=== PATIENT | female | born 1975 | race Hispanic/Latino ===

== ENCOUNTER 2018-05-16 08:08 | Emergency (ER) | payer OTHER ==
[2018-05-16 08:15] VITALS: BP 156/106
[2018-05-16] MEDS ORDERED: XYLOCAINE 1% 20 mL INFILTRATI ONE (08:35)
[2018-05-16] MEDS ORDERED: BOOSTRIX IM ONE (09:30)
--- NOTE | 2018-05-16 09:30 | Emergency Department Report ---
Abscess Boil HPI - HPI Chief Complaint: Skin/Abscess/Foreign Body Stated Complaint: Earring infection Time Seen by Provider: 05/16/18 08:36 Duration: 2 Days Location: Other (left ear) Severity: Moderate History: Yes Pain, Yes Foreign Body, No Fever, No Purulent Drainage, No Numbness, No Previous History, No Insect Bite HPI: Patient is a 42-year-old female who comes to the ER today after getting a new tragus ear piercing. The ear began to swell and she had a friend attempted to remove the earring. However, they could not get the earring out. The earring subsequently has retracted into the swollen tragus of the left ear. Home Medications: Previous Rx's Medication Instructions Recorded Last Taken Type Amoxicillin 500 mg PO BID #20 capsule 05/16/18 Unknown Rx traMADol [Ultram] 50 mg PO Q6HR PRN #10 tablet 05/16/18 Unknown Rx Allergies/Adverse Reactions: Allergies Allergy/AdvReac Type Severity Reaction Status Date / Time No Known Allergies Allergy Verified 05/16/18 09:34 ED Review of Systems ROS: Stated complaint: Earring infection Other details as noted in HPI Comment: All other systems reviewed and negative Constitutional: denies: chills Eyes: denies: eye pain ENT: denies: throat pain Respiratory: denies: orthopnea Cardiovascular: denies: dyspnea on exertion Endocrine: denies: flushing Gastrointestinal: denies: nausea Genitourinary: denies: urgency Musculoskeletal: as per HPI Skin: as per HPI, lesions. denies: rash Psychiatric: denies: depression Hematological/Lymphatic: denies: easy bleeding ED Past Medical Hx - Past Medical History Previous Medical History?: No - Surgical History Past Surgical History?: No - Social History Smoking Status: Never Smoker Substance Use Type: None - Medications Home Medications: Home Medications Medication Instructions Recorded Confirmed Last Taken Type Amoxicillin 500 mg PO BID #20 capsule 05/16/18 Unknown Rx traMADol [Ultram] 50 mg PO Q6HR PRN #10 tablet 05/16/18 Unknown Rx ED Abscess Boil Physical Exam - Exam General: Vital signs noted. No distress. Alert and acting appropriately. Exam: Yes Tenderness, Yes Surrounding Cellulites/Erythema, Yes Normal Neurologic Exam, Yes Normal Circulation, No Fluctuance, No Lymphangitis, No Crepitation, No Heart Murmur ED Course Vital Signs 05/16/18 08:12 Temperature 98.7 F Pulse Rate 91 H Respiratory 16 Rate Blood Pressure 156/106 O2 Sat by Pulse 100 Oximetry Critical care attestation.: If time is entered above; I have spent that time in minutes in the direct care of this critically ill patient, excluding procedure time. ED Medical Decision Making - Medical Decision Making pt was medicated for pain and with some difficulty I was able to pull the ear ring through the back of the tragus. The front ball was visible with manipulation of skin but the ball was mis thread and could not be unthread. pt dc with antibiotics and instructed not to repierce that ear. - Differential Diagnosis mobile foreign body ED Disposition Clinical Impression: Foreign body (FB) in soft tissue Disposition: DC-01 TO HOME OR SELFCARE Is pt being admited?: No Does the pt Need Aspirin: No Condition: Stable Instructions: Soft Tissue Foreign Body (ED) Additional Instructions: ice meds as ordered no more piercing in this body part- scar tissue will form and the same will happen motrin or tylenol for mild pain Prescriptions: Amoxicillin 500 mg PO BID #20 capsule traMADol [Ultram] 50 mg PO Q6HR PRN #10 tablet PRN Reason: Pain Referrals: PRIMARY CARE, [Primary Care Provider] - 3-5 Days Forms: Work/School Release Form(ED) Time of Disposition: 10:16 - Foreign Body Removal Ear Location: ear canal (L) Foreign Body Suspected: other (ear ring in tragus) Foreign Body Removed: yes Foreign Body Removal Technique: instrumentation Tympanic Membrane Intact: Yes Patient Tolerated Procedure: well Complications: pain
[2018-05-16] MEDS ORDERED: NORCO 5/325 PO ONE (10:00)
[2018-05-16] MEDS ORDERED: DECADRON IV ONE (10:07)
[2018-05-16] MEDS ORDERED: DILAUDID IM ONE (10:07)
[2018-05-16] MEDS ORDERED: DECADRON IM ONE (10:31)
== END 2018-05-16 11:20 | disposition home or self-care (01) ==
LOC: ED 08:08
DX: T16.2XXA Foreign body in left ear, initial encounter (principal); W45.8XXA Other foreign body or object entering through skin, initial encounter; Y93.89 Activity, other specified; Y92.89 Other specified places as the place of occurrence of the external cause; Y99.8 Other external cause status
CPT/HCPCS: 90471; 90715; 96372; 99283; J1100; J1170

== ENCOUNTER 2018-09-12 10:21 | Emergency (ER) | payer OTHER ==
[2018-09-12 10:36] VITALS: BP 163/108
--- NOTE | 2018-09-12 12:46 | XRay Report ---
Left foot 3 views: History: Stepped on glass. Findings: No radiopaque foreign body in soft tissue. No fracture, periosteal reaction or lytic lesion. Impression: Essentially negative right foot
--- NOTE | 2018-09-12 12:56 | Emergency Department Report ---
ED Extremity Problem HPI - General Chief complaint: Wound/Laceration Stated complaint: LFT FT/TOE CUT/PAIN Time Seen by Provider: 09/12/18 11:39 Source: patient Mode of arrival: Ambulatory Limitations: No Limitations - History of Present Illness Initial comments: Patient is a 42-year-old female who was trying to fix her running toilet Only dropped a candle that was sitting on the commode top onto the floor. Patient actually stepped on the glass. Patient is a laceration to the bottom of the left foot as well as a cut into the fourth toe this occurred 2 days ago. Patient states bleeding. She is still having some pain. Patient is here for evaluation of possible stitches. Patient states the pain is aching and throbbing worse when she walks and better when she rests and is 6 out of 10 in severity. - Related Data Previous Rx's Medication Instructions Recorded Last Taken Type Amoxicillin 500 mg PO BID #20 capsule 05/16/18 Unknown Rx traMADol [Ultram] 50 mg PO Q6HR PRN #10 tablet 05/16/18 Unknown Rx Ibuprofen [Ibu] 600 mg PO Q6HR PRN #20 tablet 09/12/18 Unknown Rx traMADol [Ultram] 50 mg PO Q6HR PRN #10 tablet 09/12/18 Unknown Rx Allergies Allergy/AdvReac Type Severity Reaction Status Date / Time No Known Allergies Allergy Verified 05/16/18 09:34 ED Review of Systems ROS: Stated complaint: LFT FT/TOE CUT/PAIN Other details as noted in HPI Comment: All other systems reviewed and negative ED Past Medical Hx - Past Medical History Previous Medical History?: No - Surgical History Past Surgical History?: Yes Hx Cholecystectomy: Yes - Social History Smoking Status: Never Smoker Substance Use Type: None - Medications Home Medications: Home Medications Medication Instructions Recorded Confirmed Last Taken Type Amoxicillin 500 mg PO BID #20 capsule 05/16/18 Unknown Rx traMADol [Ultram] 50 mg PO Q6HR PRN #10 tablet 05/16/18 Unknown Rx Ibuprofen [Ibu] 600 mg PO Q6HR PRN #20 tablet 09/12/18 Unknown Rx traMADol [Ultram] 50 mg PO Q6HR PRN #10 tablet 09/12/18 Unknown Rx ED Physical Exam - General Limitations: No Limitations General appearance: alert, in no apparent distress - Head Head exam: Present: atraumatic, normocephalic - Eye Eye exam: Present: normal appearance - ENT ENT exam: Present: mucous membranes moist - Neck Neck exam: Present: normal inspection - Respiratory Respiratory exam: Present: normal lung sounds bilaterally. Absent: respiratory distress, wheezes, rales, rhonchi - Cardiovascular Cardiovascular Exam: Present: regular rate, normal rhythm. Absent: systolic murmur, diastolic murmur, rubs, gallop - GI/Abdominal GI/Abdominal exam: Present: soft, normal bowel sounds - Extremities Exam Extremities exam: Present: normal inspection - Expanded Lower Extremity Exam Left 1 - 1 cm laceration which is in the early stages of healing. There is no surrounding erythema or purulent drainage 2 - 1 cm laceration which is splitting the toenail. - Back Exam Back exam: Present: normal inspection - Neurological Exam Neurological exam: Present: alert, oriented X3 - Psychiatric Psychiatric exam: Present: normal affect, normal mood - Skin Skin exam: Present: warm, dry, intact, normal color. Absent: rash ED Course Vital Signs 09/12/18 10:33 Temperature 97.2 F L Pulse Rate 94 H Respiratory 16 Rate Blood Pressure 163/108 O2 Sat by Pulse 100 Oximetry ED Medical Decision Making - Radiology Data X-ray was performed which showed no radiopaque foreign bodies. - Medical Decision Making Patient placed in a aorta shoe and the patient be discharged home with symptomatic relief. Tetanus shot is within normal limits. Critical care attestation.: If time is entered above; I have spent that time in minutes in the direct care of this critically ill patient, excluding procedure time. ED Disposition Clinical Impression: Foot laceration Qualifiers: Encounter type: initial encounter Laterality: left Qualified Code(s): S91.312A - Laceration without foreign body, left foot, initial encounter Disposition: - TO HOME OR SELFCARE Is pt being admited?: No Does the pt Need Aspirin: No Condition: Stable Instructions: Laceration (ED) Referrals: MYRON DINH MD [Primary Care Provider] - as needed Forms: Work/School Release Form(ED) Time of Disposition: 12:56
== END 2018-09-12 13:10 | disposition home or self-care (01) ==
LOC: ED 10:21
DX: S91.312A Laceration without foreign body, left foot, initial encounter (principal); S91.115A Laceration without foreign body of left lesser toe(s) without damage to nail, initial encounter; Z90.49 Acquired absence of other specified parts of digestive tract; W04.XXXA Fall while being carried or supported by other persons, initial encounter; Y93.02 Activity, running; Y92.022 Bathroom in mobile home as the place of occurrence of the external cause; Y99.8 Other external cause status
CPT/HCPCS: 99283

== ENCOUNTER 2020-10-01 18:36 | Emergency (ER) | payer SELFPAY ==
[2020-10-01 19:59] VITALS: BP 146/80
== END 2020-10-01 22:10 | disposition left against medical advice (07) ==
LOC: ED 18:36
DX: S69.92XA Unspecified injury of left wrist, hand and finger(s), initial encounter (principal); Z53.21 Procedure and treatment not carried out due to patient leaving prior to being seen by health care provider; X58.XXXA Exposure to other specified factors, initial encounter; Y93.89 Activity, other specified; Y92.89 Other specified places as the place of occurrence of the external cause; Y99.8 Other external cause status

== ENCOUNTER 2020-10-18 05:58 | Emergency (ER) | payer SELFPAY ==
[2020-10-18 07:00] LABS: HCG Qualitative,Urine Negative (Negative)
[2020-10-18 07:02] LABS: Bacteria,Urine 3+ /HPF (Negative); Bilirubin,Urine NEG (Negative); Blood,Urine SM (Negative); Color,Urine Straw (Yellow); Mucus,Urine FEW /HPF; Protein,Urine <15 mg/dL mg/dL (Negative); Urobilinogen,Urine < 2.0 mg/dL (<2.0)
[2020-10-18] MEDS ORDERED: cefTRIAXone/NS 2 GM/100 ML 2 GM/100 ML BAG IV ONE (08:08)
[2020-10-18] MEDS ORDERED: ONDANSETRON 4 MG/2 ML INJ IV ONE (08:08)
[2020-10-18] MEDS ORDERED: ACETAMINOPHEN 500 MG TAB PO ONE (08:08)
[2020-10-18] MEDS ORDERED: MORPHINE 4 MG/1 ML INJ IV ONE (08:08)
[2020-10-18] MEDS ORDERED: SODIUM CHLORIDE 0.9% 1000 ML 1,000 ML IV ONE (08:08)
--- NOTE | 2020-10-18 08:09 | Emergency Department Report ---
ED General Adult HPI - General Chief complaint: Urogenital-Female Stated complaint: POSSIBLE UTI/FEVER/CHILLS/BACK PAIN PUI?: No Time Seen by Provider: 10/18/20 07:35 Source: patient, RN notes reviewed Mode of arrival: Ambulatory Limitations: No Limitations - History of Present Illness Initial comments: The patient was evaluated in the emergency department for symptoms described in the history of present illness. He/she was evaluated in the context of the global COVID-19 pandemic, which necessitated consideration that the patient might be at risk for infection with the virus that causes COVID-19. Institutional protocols and algorithms that pertain to the evaluation of patients at risk for COVID-19 are in a state of rapid change based on information released by regulatory bodies including the CDC and federal and state organizations. These policies and algorithms were followed during the patient's care in the emergency department. Please note that these policies, procedures and recommendations changed on a rapid basis. The patient is a 44-year-old female. She is not known to myself previously. She denies chronic medical conditions, and reports she does not have a primary care doctor. She presents to the ER today with complaint of 3 days of nontraumatic right sided flank pain, chills, fever, dysuria, frequency and burning urination, and right flank and right lower quadrant pain. Has a mild headache, no neck pain, no chest pain, no shortness of breath, no Covid symptomatology. Took yvpz-gtb-axvalyz medicine and cranberry juice, without improvement in symptoms. Believes that she is having a urinary tract infection. Has not taken antibiotics recently. States this is never happened to her before. Prior surgical history includes cholecystectomy. -: Gradual, days(s) Location: back Radiation: abdomen, flank Severity scale (0 -10): 10 Quality: aching Consistency: constant Improves with: rest Worsens with: movement - Related Data Previous Rx's Medication Instructions Recorded Last Taken Type Ibuprofen [Ibu] 600 mg PO Q6HR PRN #20 tablet 09/12/18 Unknown Rx Trudy Root [Trudy] 250 mg PO QID PRN #30 capsule 10/18/20 Unknown Rx Ibuprofen [Motrin] 600 mg PO Q8H PRN #30 tablet 10/18/20 Unknown Rx Metoclopramide [Reglan] 10 mg PO QID PRN #30 tablet 10/18/20 Unknown Rx Metoclopramide [Reglan] 10 mg PO QID PRN #30 tablet 10/18/20 Unknown Rx Morphine Sulfate [Morphine Sulfate 7.5 mg PO Q6HR PRN #10 tablet 10/18/20 Unknown Rx IR] levoFLOXacin [Levaquin] 750 mg PO QDAY #10 tablet 10/18/20 Unknown Rx Allergies Allergy/AdvReac Type Severity Reaction Status Date / Time No Known Allergies Allergy Verified 05/16/18 09:34 ED Review of Systems ROS: Stated complaint: POSSIBLE UTI/FEVER/CHILLS/BACK PAIN Other details as noted in HPI Constitutional: chills, fever, malaise Eyes: denies: eye discharge ENT: denies: epistaxis Respiratory: denies: cough Cardiovascular: denies: chest pain Gastrointestinal: abdominal pain, nausea. denies: vomiting Genitourinary: dysuria, frequency Musculoskeletal: back pain Neurological: headache. denies: weakness Psychiatric: anxiety Hematological/Lymphatic: denies: easy bleeding ED Past Medical Hx - Past Medical History Previous Medical History?: No - Surgical History Past Surgical History?: Yes Hx Cholecystectomy: Yes - Social History Smoking Status: Never Smoker Substance Use Type: None - Medications Home Medications: Home Medications Medication Instructions Recorded Confirmed Last Taken Type Ibuprofen [Ibu] 600 mg PO Q6HR PRN #20 tablet 09/12/18 Unknown Rx Trudy Root [Trudy] 250 mg PO QID PRN #30 capsule 10/18/20 Unknown Rx Ibuprofen [Motrin] 600 mg PO Q8H PRN #30 tablet 10/18/20 Unknown Rx Metoclopramide [Reglan] 10 mg PO QID PRN #30 tablet 10/18/20 Unknown Rx Metoclopramide [Reglan] 10 mg PO QID PRN #30 tablet 10/18/20 Unknown Rx Morphine Sulfate [Morphine Sulfate 7.5 mg PO Q6HR PRN #10 tablet 10/18/20 Unknown Rx IR] levoFLOXacin [Levaquin] 750 mg PO QDAY #10 tablet 10/18/20 Unknown Rx ED Physical Exam - General Limitations: No Limitations General appearance: alert, anxious - Head Head exam: Present: atraumatic, normocephalic - Eye Eye exam: Present: normal appearance, EOMI. Absent: nystagmus - ENT ENT exam: Present: normal exam, normal orophraynx, mucous membranes moist, normal external ear exam - Neck Neck exam: Present: normal inspection, full ROM. Absent: tenderness, meningismus - Respiratory Respiratory exam: Present: normal lung sounds bilaterally. Absent: respiratory distress, wheezes, rales, rhonchi, stridor, decreased breath sounds - Cardiovascular Cardiovascular Exam: Present: regular rate, normal rhythm, normal heart sounds. Absent: bradycardia, tachycardia, irregular rhythm, systolic murmur, diastolic murmur, rubs, gallop - GI/Abdominal GI/Abdominal exam: Present: soft, tenderness, other (There is right flank tenderness. There is right lower quadrant tenderness to deep palpation). Absent: distended, guarding, rebound, rigid, pulsatile mass - Extremities Exam Extremities exam: Present: normal inspection, full ROM, other (2+ pulses noted in the bilateral upper and lower extremities. There is no palpable cord. negative Homans sign. Muscular compartments are soft. The pelvis is stable.). Absent: pedal edema, calf tenderness - Back Exam Back exam: Present: normal inspection, CVA tenderness (R). Absent: tenderness, CVA tenderness (L), paraspinal tenderness, vertebral tenderness - Neurological Exam Neurological exam: Present: alert, normal gait, other (No facial droop. Tongue midline. Extraocular movements intact bilaterally. Facial sensation intact to light touch in V1, V2, V3 distribution bilaterally. 5 and a 5 strength in 4 extremities. Sensation intact to light touch in 4 extremities.). Absent: motor sensory deficit - Psychiatric Psychiatric exam: Present: anxious - Skin Skin exam: Present: warm, dry, intact, normal color. Absent: rash ED Course Vital Signs 10/18/20 10/18/20 10/18/20 06:47 09:27 11:06 Temperature 99.4 F 98.5 F Pulse Rate 94 H 75 Respiratory 18 18 16 Rate Blood Pressure 145/76 104/39 [Left] O2 Sat by Pulse 100 99 Oximetry - Reevaluation(s) Reevaluation #1: 10/18/20 08:54 Differential diagnosis, including but not limited to: Pyelonephritis, perinephric abscess, renal colic, infected stone, appendicitis Assessment and plan: 44-year-old female with probable pyelonephritis. She has a low-grade temperature, has CVA tenderness, irritative urinary symptoms, and right flank tenderness as well. She will be treated empirically for pyelonephritis, however, we will obtain appropriate laboratory studies, CT scan of the abdomen pelvis to exclude surgical disease. We will also treat her symptoms. Reassess after initial data points. Have discussed this plan of care with the patient's. She is amenable to this plan of care. Reassess after initial data points. I doubt invasive bacterial illness at this time, but will send screening lactic acid. Reevaluation #2: 10/18/20 11:03 Patient feels improved. Radiology read read, as per Dr. Weems shows uncomplicated pyelonephritis, without other significant findings. Please note that secondary to information technology and technical issues, a written, typed, or computer-generated report is not available for my personal review I have gone back to reassess the patient, her pain and tenderness are improved, and she has no active nausea, vomiting at this time. Have updated patient on plan of care, CT scan findings, and laboratory studies. She reports that she is comfortable to follow-up as an outpatient. Return precautions are reviewed. She is suitable for trial of outpatient management at this time. ED Medical Decision Making - Lab Data Result diagrams: 10/18/20 08:24 10/18/20 08:24 Vital Signs 10/18/20 06:47 Temperature 99.4 F Pulse Rate 94 H Respiratory 18 Rate Blood Pressure 145/76 [Left] O2 Sat by Pulse 100 Oximetry Lab Results 10/18/20 10/18/20 10/18/20 Range/Units 06:45 08:24 08:24 WBC 7.8 (4.5-11.0) K/mm3 RBC 4.58 (3.65-5.03) M/mm3 Hgb 9.7 L (10.1-14.3) gm/dl Hct 30.8 (30.3-42.9) % MCV 67 L (79-97) fl MCH 21 L (28-32) pg MCHC 32 (30-34) % RDW 17.6 H (13.2-15.2) % Plt Count 209 (140-440) K/mm3 Lymph % (Auto) 11.2 L (13.4-35.0) % Nance % (Auto) 10.5 H (0.0-7.3) % Eos % (Auto) 0.3 (0.0-4.3) % Baso % (Auto) 0.2 (0.0-1.8) % Lymph # (Auto) 0.9 L (1.2-5.4) K/mm3 Nance # (Auto) 0.8 (0.0-0.8) K/mm3 Eos # (Auto) 0.0 (0.0-0.4) K/mm3 Baso # (Auto) 0.0 (0.0-0.1) K/mm3 Seg Neutrophils % 77.8 H (40.0-70.0) % Seg Neutrophils # 6.1 (1.8-7.7) K/mm3 Sodium 138 (137-145) mmol/L Potassium 3.7 (3.6-5.0) mmol/L Chloride 100.5 (98-107) mmol/L Carbon Dioxide 27 (22-30) mmol/L Anion Gap 14 mmol/L BUN 6 L (7-17) mg/dL Creatinine 0.8 (0.6-1.2) mg/dL Estimated GFR > 60 ml/min BUN/Creatinine Ratio 8 % Glucose 156 H (65-100) mg/dL Lactic Acid (0.7-2.0) mmol/L Calcium 8.9 (8.4-10.2) mg/dL Magnesium 2.00 (1.7-2.3) mg/dL Total Bilirubin 0.50 (0.1-1.2) mg/dL AST 25 (5-40) units/L ALT 23 (7-56) units/L Alkaline Phosphatase 93 (35-129) units/L Total Creatine Kinase 27 L (30-135) units/L Total Protein 6.2 L (6.3-8.2) g/dL Albumin 3.9 (3.9-5) g/dL Albumin/Globulin Ratio 1.7 % Urine Color Straw (Yellow) Urine Turbidity Slightly-cloudy (Clear) Urine pH 7.0 (5.0-7.0) Ur Specific [place] 1.001 L (1.003-1.030) Urine Protein <15 mg/dl (Negative) mg/dL Urine Glucose (UA) Neg (Negative) mg/dL Urine Ketones Neg (Negative) mg/dL Urine Blood Sm (Negative) Urine Nitrite Neg (Negative) Ur Reducing Substances Not Reportable Urine Bilirubin Neg (Negative) Urine Ictotest Not Reportable Urine Urobilinogen < 2.0 (<2.0) mg/dL Ur Leukocyte Esterase Lg (Negative) Urine WBC (Auto) 88.0 H (0.0-6.0) /HPF Urine RBC (Auto) 3.0 (0.0-6.0) /HPF U Epithel Cells (Auto) 4.0 (0-13.0) /HPF Urine Bacteria (Auto) 3+ (Negative) /HPF Urine Mucus Few /HPF Urine HCG, Qual Negative (Negative) 10/18/20 Range/Units 08:24 WBC (4.5-11.0) K/mm3 RBC (3.65-5.03) M/mm3 Hgb (10.1-14.3) gm/dl Hct (30.3-42.9) % MCV (79-97) fl MCH (28-32) pg MCHC (30-34) % RDW (13.2-15.2) % Plt Count (140-440) K/mm3 Lymph % (Auto) (13.4-35.0) % Nance % (Auto) (0.0-7.3) % Eos % (Auto) (0.0-4.3) % Baso % (Auto) (0.0-1.8) % Lymph # (Auto) (1.2-5.4) K/mm3 Nance # (Auto) (0.0-0.8) K/mm3 Eos # (Auto) (0.0-0.4) K/mm3 Baso # (Auto) (0.0-0.1) K/mm3 Seg Neutrophils % (40.0-70.0) % Seg Neutrophils # (1.8-7.7) K/mm3 Sodium (137-145) mmol/L Potassium (3.6-5.0) mmol/L Chloride (98-107) mmol/L Carbon Dioxide (22-30) mmol/L Anion Gap mmol/L BUN (7-17) mg/dL Creatinine (0.6-1.2) mg/dL Estimated GFR ml/min BUN/Creatinine Ratio % Glucose (65-100) mg/dL Lactic Acid 1.90 (0.7-2.0) mmol/L Calcium (8.4-10.2) mg/dL Magnesium (1.7-2.3) mg/dL Total Bilirubin (0.1-1.2) mg/dL AST (5-40) units/L ALT (7-56) units/L Alkaline Phosphatase (35-129) units/L Total Creatine Kinase (30-135) units/L Total Protein (6.3-8.2) g/dL Albumin (3.9-5) g/dL Albumin/Globulin Ratio % Urine Color (Yellow) Urine Turbidity (Clear) Urine pH (5.0-7.0) Ur Specific [place] (1.003-1.030) Urine Protein (Negative) mg/dL Urine Glucose (UA) (Negative) mg/dL Urine Ketones (Negative) mg/dL Urine Blood (Negative) Urine Nitrite (Negative) Ur Reducing Substances Urine Bilirubin (Negative) Urine Ictotest Urine Urobilinogen (<2.0) mg/dL Ur Leukocyte Esterase (Negative) Urine WBC (Auto) (0.0-6.0) /HPF Urine RBC (Auto) (0.0-6.0) /HPF U Epithel Cells (Auto) (0-13.0) /HPF Urine Bacteria (Auto) (Negative) /HPF Urine Mucus /HPF Urine HCG, Qual (Negative) - Radiology Data Radiology results: pending, report reviewed, [place] [address] Cat Scan Report Signed Patient: LIAM SENA MR #: [id number] : 1975 Acct:[id number] Age/Sex: 44 / F ADM Date: 10/18/20 Loc: ED Attending Dr: Ordering Physician: LILIANA ZUNIGA MD Date of Service: 10/18/20 Procedure(s): CT abdomen pelvis w con Accession Number(s): [id number] cc: LILIANA ZUNIGA MD CT ABDOMEN AND PELVIS WITH CONTRAST INDICATION / CLINICAL INFORMATION: Right flank pain, pyelonephritis. TECHNIQUE: Axial CT images were obtained through the abdomen and pelvis after 100 cc Omnipaque [address] scans at this location are performed using CT dose reduction for ALARA by means of automated exposure control. COMPARISON: None available. FINDINGS: LOWER CHEST: No significant abnormality. LIVER: No significant abnormality. GALLBLADDER: Prior cholecystectomy. BILE DUCTS: No significant abnormality. PANCREAS: No significant abnormality. SPLEEN: No significant abnormality. ADRENALS: No significant abnormality. RIGHT KIDNEY / URETER: Heterogeneous enhancement is noted along the right kidney with generalized edema and mild perinephric fat stranding. There is generalized urothelial thickening/enhancement with mild periureteral fat stranding proximally. No other significant abnormality is noted. LEFT KIDNEY / URETER: No significant abnormality. STOMACH / SMALL BOWEL: No significant abnormality. COLON: Descending and sigmoid diverticulosis is seen without evidence of diverticulitis. No other significant abnormalities. APPENDIX: No significant abnormality. PERITONEUM: No free fluid. No free air. No fluid collection. LYMPH NODES: No significant adenopathy. AORTA / ARTERIES: No significant abnormality. IVC / VEINS: No significant abnormality. URINARY BLADDER: No significant abnormality. REPRODUCTIVE ORGANS: The uterus is enlarged and contains multiple probable fibroids. A account manager sales representative lesion located to the right of midline along the fundus measures 3.6 x 3.4 cm on image 139 of series 2. No other significant abnormality. ADDITIONAL FINDINGS: None. SKELETAL SYSTEM: No significant abnormality. IMPRESSION: 1. Findings compatible with uncomplicated acute right pyelonephritis. 2. Additional findings as above. COMMUNICATION: Time of Communication ([employer] [facility]/CDT): 10:30 Licensed Practitioner Receiving Report: Dr. Jose De Jesus moffett Signer Name: Zay Weems MD Signed: 10/18/2020 2:11 PM Workstation Name: [id number] Transcribed By: [place] Dictated By: Zay Weems MD Electronically Authenticated By: Zay Weems MD Signed Date/Time: 10/18/20 1411 Critical care attestation.: If time is entered above; I have spent that time in minutes in the direct care of this critically ill patient, excluding procedure time. ED Disposition Clinical Impression: Pyelonephritis, Right flank pain Disposition: DC-01 TO HOME OR SELFCARE Is pt being admited?: No Does the pt Need Aspirin: No Condition: Good Instructions: Pyelonephritis, Adult Additional Instructions: As we discussed, laboratory studies and radiology studies today suggested kidney infection/pyelonephritis. Cultures were sent today, and results will be available over the next 3 to 5 days. Please have a primary care doctor contact the medical records department to follow-up on culture results. CT scan of the abdomen pelvis was initially read by the radiologist as being suggestive of kidney infection. However, a formal complete radiology interpretation will be rendered, and written down, and placed in the patient's medical record. Please have your primary care doctor contact the medical records department to follow-up on complete written reports of CT scan abdomen pelvis. Do not consume alcohol, take the antibiotics, pain medication, nausea medication as needed and directed. Please follow-up in 2 to 3 days for a repeat checkup and evaluation. Patient may return to this emergency room, or follow-up with a primary care doctor. Please return to the emergency room right away with new pain, worsened pain, migration of pain, projectile vomiting, change in mental status, confusion, inability to tolerate liquid feeds, new, worsened or different symptoms not present on the initial emergency room evaluation. For the patient's convenience, a number of local primary care doctors have been listed. Prescriptions: Trudy Root [Trudy] 250 mg PO QID PRN #30 capsule PRN Reason: Nausea levoFLOXacin [Levaquin] 750 mg PO QDAY #10 tablet Morphine Sulfate [Morphine Sulfate IR] 7.5 mg PO Q6HR PRN #10 tablet PRN Reason: Pain , Severe (7-10) Ibuprofen [Motrin] 600 mg PO Q8H PRN #30 tablet PRN Reason: Pain Metoclopramide [Reglan] 10 mg PO QID PRN #30 tablet PRN Reason: Nausea Metoclopramide [Reglan] 10 mg PO QID PRN #30 tablet PRN Reason: Nausea Referrals: MYRON DINH MD [Staff Physician] - 3-5 Days [facility] [Provider Group] - 3-5 Days Forms: Work/School Release Form(ED)
[2020-10-18 09:04] LABS: Basophils % (Auto) 0.2 % (0.0-1.8); Eosinophils % (Auto) 0.3 % (0.0-4.3); Hematocrit 30.8 % (30.3-42.9); Hemoglobin 9.7 gm/dl (10.1-14.3); Lymphocytes # (Auto) 0.9 K/mm3 (1.2-5.4); Lymphocytes % (Auto) 11.2 % (13.4-35.0); Mean Corpuscular HGB Conc 32 % (30-34); Monocytes # (Auto) 0.8 K/mm3 (0.0-0.8); Monocytes % (Auto) 10.5 % (0.0-7.3); Platelet Count 209 K/mm3 (140-440); Red Blood Count 4.58 M/mm3 (3.65-5.03); Red Cell Distribution Width 17.6 % (13.2-15.2)
[2020-10-18 09:10] LABS: Mean Corpuscular Volume 67 fl (79-97)
[2020-10-18 09:26] LABS: Alanine Aminotransferase 23 units/L (7-56); Albumin 3.9 g/dL (3.9-5); BUN/Creatinine Ratio 8; Blood Urea Nitrogen 6 mg/dL (7-17); Calcium 8.9 mg/dL (8.4-10.2); Hemolysis Index 0
[2020-10-18 11:07] VITALS: BP 104/39
--- NOTE | 2020-10-18 14:18 | Cat Scan Report ---
CT ABDOMEN AND PELVIS WITH CONTRAST INDICATION / CLINICAL INFORMATION: Right flank pain, pyelonephritis. TECHNIQUE: Axial CT images were obtained through the abdomen and pelvis after 100 cc Omnipaque [address] scans at this location are performed using CT dose reduction for ALARA by means of automated exposure control. COMPARISON: None available. FINDINGS: LOWER CHEST: No significant abnormality. LIVER: No significant abnormality. GALLBLADDER: Prior cholecystectomy. BILE DUCTS: No significant abnormality. PANCREAS: No significant abnormality. SPLEEN: No significant abnormality. ADRENALS: No significant abnormality. RIGHT KIDNEY / URETER: Heterogeneous enhancement is noted along the right kidney with generalized mary ma and mild perinephric fat stranding. There is generalized urothelial thickening/enhancement with mi ld periureteral fat stranding proximally. No other significant abnormality is noted. LEFT KIDNEY / URETER: No significant abnormality. STOMACH / SMALL BOWEL: No significant abnormality. COLON: Descending and sigmoid diverticulosis is seen without evidence of diverticulitis. No other sig nificant abnormalities. APPENDIX: No significant abnormality. PERITONEUM: No free fluid. No free air. No fluid collection. LYMPH NODES: No significant adenopathy. AORTA / ARTERIES: No significant abnormality. IVC / VEINS: No significant abnormality. URINARY BLADDER: No significant abnormality. REPRODUCTIVE ORGANS: The uterus is enlarged and contains multiple probable fibroids. A sales representative health insurance lesion located to the right of midline along the fundus measures 3.6 x 3.4 cm on image 139 of series 2. No other significant abnormality. ADDITIONAL FINDINGS: None. SKELETAL SYSTEM: No significant abnormality. IMPRESSION: 1. Findings compatible with uncomplicated acute right pyelonephritis. 2. Additional findings as above. COMMUNICATION: Time of Communication (EGG [employer] WORKER/CDT): 10:30 Licensed Practitioner Receiving Report: Dr. Maguire Signer Name: Zay Weems MD Signed: 10/18/2020 2:11 PM Workstation Name: [id number]
== END 2020-10-18 11:34 | disposition home or self-care (01) ==
LOC: ED 05:58
DX: N12 Tubulo-interstitial nephritis, not specified as acute or chronic (principal); R51.9 Headache, unspecified; Z90.49 Acquired absence of other specified parts of digestive tract; Z79.899 Other long term (current) drug therapy
CPT/HCPCS: 36415; 74177; 80053; 81001; 81025; 82140; 82550; 83735; 85025; 87076; 87086; 87186; 96365; 96375; 99284; J0696; J2270; J2405; J7030; Q9967; 96361

== ENCOUNTER 2021-03-28 13:40 | Emergency (ER) | payer SELFPAY ==
[2021-03-28 13:55] VITALS: BP 158/91
[2021-03-28] MEDS ORDERED: ONDANSETRON 4 MG ODT TAB PO ONE (14:14)
[2021-03-28] MEDS ORDERED: BUTALB/ACETAMINOPHEN/CAFFEINE TAB PO ONE (14:14)
--- NOTE | 2021-03-28 15:01 | Emergency Department Report ---
ED General Adult HPI - General Chief complaint: Chest Pain Stated complaint: CHEST PAIN/ HEADACHE / FEVER Time Seen by Provider: 03/28/21 14:02 Source: patient Mode of arrival: Ambulatory Limitations: No Limitations - History of Present Illness Initial comments: Patient is a 45-year-old female presents emergency room complaints of a fever that began 2 days ago. She has associated chills, sweats, dry cough. She states that she also began having pain under her right breast after frequent coughing. Patient states that she has had some nausea, vomiting, headache. She denies any shortness of breath, leg swelling, diarrhea, hemoptysis. She denies any known sick contacts or recent travel. 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 No past medical history. No allergies to medications. She is a non- smoker. She has been fully vaccinated for COVID-19. Severity scale (0 -10): 8 - Related Data Previous Rx's Medication Instructions Recorded Last Taken Type Ibuprofen [Ibu] 600 mg PO Q6HR PRN #20 tablet 09/12/18 Unknown Rx Trudy Root [Trudy] 250 mg PO QID PRN #30 capsule 10/18/20 Unknown Rx Ibuprofen [Motrin] 600 mg PO Q8H PRN #30 tablet 10/18/20 Unknown Rx Metoclopramide [Reglan] 10 mg PO QID PRN #30 tablet 10/18/20 Unknown Rx Metoclopramide [Reglan] 10 mg PO QID PRN #30 tablet 10/18/20 Unknown Rx Morphine Sulfate [Morphine Sulfate 7.5 mg PO Q6HR PRN #10 tablet 10/18/20 Unknown Rx IR] levoFLOXacin [Levaquin] 750 mg PO QDAY #10 tablet 10/18/20 Unknown Rx Benzonatate [Tessalon Perles] 100 mg PO Q8HR PRN #12 capsule 03/28/21 Unknown Rx Butalb/Acetaminophen/Caffeine 1 cap PO Q8HR PRN #10 cap 03/28/21 Unknown Rx [Fioricet 50-300-40 mg CAP] Ondansetron [Zofran Odt] 4 mg PO Q8HR PRN #10 tab.rapdis 03/28/21 Unknown Rx guaiFENesin ER [Mucinex ER] 600 mg PO Q12H #12 tablet.er 03/28/21 Unknown Rx Allergies Allergy/AdvReac Type Severity Reaction Status Date / Time No Known Allergies Allergy Verified 05/16/18 09:34 ED Review of Systems ROS: Stated complaint: CHEST PAIN/ HEADACHE / FEVER Other details as noted in HPI Comment: All other systems reviewed and negative ED Past Medical Hx - Surgical History Hx Cholecystectomy: Yes - Social History Smoking Status: Never Smoker Substance Use Type: None - Medications Home Medications: Home Medications Medication Instructions Recorded Confirmed Last Taken Type Ibuprofen [Ibu] 600 mg PO Q6HR PRN #20 tablet 09/12/18 Unknown Rx Trudy Root [Trudy] 250 mg PO QID PRN #30 capsule 10/18/20 Unknown Rx Ibuprofen [Motrin] 600 mg PO Q8H PRN #30 tablet 10/18/20 Unknown Rx Metoclopramide [Reglan] 10 mg PO QID PRN #30 tablet 10/18/20 Unknown Rx Metoclopramide [Reglan] 10 mg PO QID PRN #30 tablet 10/18/20 Unknown Rx Morphine Sulfate [Morphine Sulfate 7.5 mg PO Q6HR PRN #10 tablet 10/18/20 Unknown Rx IR] levoFLOXacin [Levaquin] 750 mg PO QDAY #10 tablet 10/18/20 Unknown Rx Benzonatate [Tessalon Perles] 100 mg PO Q8HR PRN #12 capsule 03/28/21 Unknown Rx Butalb/Acetaminophen/Caffeine 1 cap PO Q8HR PRN #10 cap 03/28/21 Unknown Rx [Fioricet 50-300-40 mg CAP] Ondansetron [Zofran Odt] 4 mg PO Q8HR PRN #10 tab.rapdis 03/28/21 Unknown Rx guaiFENesin ER [Mucinex ER] 600 mg PO Q12H #12 tablet.er 03/28/21 Unknown Rx ED Physical Exam - General Limitations: No Limitations General appearance: alert, in no apparent distress - Head Head exam: Present: atraumatic, normocephalic - Eye Eye exam: Present: normal appearance - ENT ENT exam: Present: mucous membranes moist - Respiratory Respiratory exam: Present: normal lung sounds bilaterally. Absent: respiratory distress, wheezes, rales, rhonchi, stridor, chest wall tenderness, accessory muscle use, decreased breath sounds, prolonged expiratory - Cardiovascular Cardiovascular Exam: Present: regular rate, normal rhythm, normal heart sounds. Absent: systolic murmur, diastolic murmur, rubs, gallop - Neurological Exam Neurological exam: Present: alert, oriented X3 - Psychiatric Psychiatric exam: Present: normal affect, normal mood - Skin Skin exam: Present: warm, dry, intact ED Course Vital Signs 03/28/21 13:54 Temperature 98.2 F Pulse Rate 97 H Respiratory 17 Rate Blood Pressure 158/91 O2 Sat by Pulse 100 Oximetry ED Medical Decision Making - Lab Data Result diagrams: 03/28/21 14:39 03/28/21 14:39 - EKG Data EKG shows normal: sinus rhythm, axis, intervals, QRS complexes, ST-T waves Rate: normal - Radiology Data Radiology results: report reviewed Ordering Physician: MANUEL CONWAY Date of Service: 03/28/21 Procedure(s): XR chest routine 2V Accession Number(s): [id number] cc: MANUEL CONWAY Fluoro Time In Minutes: CHEST 2 VIEWS INDICATION / CLINICAL INFORMATION: cough,fever. COMPARISON: None available. FINDINGS: SUPPORT DEVICES: None. HEART / MEDIASTINUM: No significant abnormality. LUNGS / PLEURA: No significant pulmonary abnormality. No significant pleural effusion. No pneumothorax. ADDITIONAL FINDINGS: No significant additional findings. IMPRESSION: 1. No acute abnormality of the chest. Signer Name: Zay Weems MD Signed: 03/28/2021 3:45 PM Workstation Name: [id number] Transcribed By: MN Dictated By: Zay Weems MD Electronically Authenticated By: Zay Weems MD Signed Date/Time: 03/28/21 154 DD/ 154 TD/TT: - Medical Decision Making Patient is a 45-year-old female presents emergency room complaints of a fever that began 2 days ago. She has associated chills, sweats, dry cough. She states that she also began having pain under her right breast after frequent coughing. Patient states that she has had some nausea, vomiting, headache. She denies any shortness of breath, leg swelling, diarrhea, hemoptysis. She denies any known sick contacts or recent travel. 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 No past medical history. No allergies to medications. She is a non- smoker. She has been fully vaccinated for COVID-19. Vitals are stable. Breath sounds are clear bilaterally, no wheezing, no rales, no rhonchi. EKG is within normal limits. Chest x-ray with no acute process. Labs are stable. Patient given medications while in the emergency department with improvement of her symptoms. Symptoms likely related to URI. Discussed the importance of out patient follow-up and strict return precautions. Discussed supportive care and symptomatic treatment with patient. Advised patient Please take medication as prescribed as needed. Increase your fluid intake. Follow-up with your primary care doctor. Return to emergency room for any new or worsening symptoms. Recommend outpatient COVID-19 testing and if positive will need to self quarantine for 10 days from onset of symptoms. Critical care attestation.: If time is entered above; I have spent that time in minutes in the direct care of this critically ill patient, excluding procedure time. ED Disposition Clinical Impression: Upper respiratory infection Qualifiers: URI type: unspecified URI Qualified Code(s): J06.9 - Acute upper respiratory infection, unspecified Disposition: 01 HOME / SELF CARE / HOMELESS Is pt being admited?: No Does the pt Need Aspirin: No Condition: Stable Instructions: Viral Respiratory Infection Additional Instructions: Please take medication as prescribed as needed. Increase your fluid intake. Follow-up with your primary care doctor. Return to emergency room for any new or worsening symptoms. Recommend outpatient COVID-19 testing and if positive will need to self quarantine for 10 days from onset of symptoms. Prescriptions: Butalb/Acetaminophen/Caffeine [Fioricet 50-300-40 mg CAP] 1 cap PO Q8HR PRN #10 cap PRN Reason: headache guaiFENesin ER [Mucinex ER] 600 mg PO Q12H #12 tablet.er Benzonatate [Tessalon Perles] 100 mg PO Q8HR PRN #12 capsule PRN Reason: cough Ondansetron [Zofran Odt] 4 mg PO Q8HR PRN #10 tab.rapdis PRN Reason: nausea/vomiting Referrals: PRIMARY MD PHYLLIS [Primary Care Provider] - 3-5 Days MYRON DINH MD [Staff Physician] - 3-5 Days [facility] [Provider Group] - 3-5 Days Forms: Work/School Release Form(ED) Time of Disposition: 16:16 Print Language: VIET[place]ESE
[2021-03-28 15:16] LABS: Basophils # (Auto) 0.1 K/mm3 (0.0-0.1); Basophils % (Auto) 1.4 % (0.0-1.8); Eosinophils # (Auto) 0.1 K/mm3 (0.0-0.4); Lymphocytes % (Auto) 14.8 % (13.4-35.0); Mean Corpuscular HGB Conc 29 % (30-34); Monocytes # (Auto) 0.4 K/mm3 (0.0-0.8); Monocytes % (Auto) 6.4 % (0.0-7.3); Platelet Count 340 K/mm3 (140-440); Red Blood Count 5.76 M/mm3 (3.65-5.03); Red Cell Distribution Width 17.2 % (13.2-15.2)
[2021-03-28 15:23] LABS: Hematocrit 37.5 % (30.3-42.9); Mean Corpuscular Volume 65 fl (79-97)
[2021-03-28 15:41] LABS: Alanine Aminotransferase 13 units/L (7-56); Albumin 4.2 g/dL (3.9-5); Blood Urea Nitrogen 12 mg/dL (7-17); Calcium 8.9 mg/dL (8.4-10.2); Hemolysis Index 5
[2021-03-28 15:43] LABS: BUN/Creatinine Ratio 20
--- NOTE | 2021-03-28 15:49 | XRay Report ---
CHEST 2 VIEWS INDICATION / CLINICAL INFORMATION: cough,fever. COMPARISON: None available. FINDINGS: SUPPORT DEVICES: None. HEART / MEDIASTINUM: No significant abnormality. LUNGS / PLEURA: No significant pulmonary abnormality. No significant pleural effusion. No pneumothora x. ADDITIONAL FINDINGS: No significant additional findings. IMPRESSION: 1. No acute abnormality of the chest. Signer Name: Zay Weems MD Signed: 03/28/2021 3:45 PM Workstation Name: [id number]
--- NOTE | 2021-03-29 13:25 | Electrocardiograph Report ---
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
== END 2021-03-28 16:37 | disposition home or self-care (01) ==
LOC: ED 13:40
DX: J06.9 Acute upper respiratory infection, unspecified (principal)
CPT/HCPCS: 36415; 71046; 80053; 84484; 84703; 85025; 93005; 99283; J3490; Q0162

== ENCOUNTER 2021-10-30 18:04 | Emergency (ER) | payer SELFPAY ==
--- NOTE | 2021-10-30 20:21 | XRay Report ---
LEFT HAND 4 VIEW(S) INDICATION / CLINICAL INFORMATION: PAIN COMPARISON: None available. FINDINGS: BONES / JOINT(S): No acute fracture or subluxation. No significant arthritis. SOFT TISSUES: No significant abnormality. ADDITIONAL FINDINGS: None. IMPRESSION: 1. No acute findings. Signer Name: Boyd Coleman MD Signed: 10/30/2021 8:16 PM Workstation Name: [id number]
--- NOTE | 2021-10-31 05:46 | Emergency Department Report ---
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 Patient presents for left posterior thumb base pain and swelling x5 days. Patient denies fall injury or trauma. Patient described pain as 5/10 burning and tingling. There is no paralysis. Range of motion remains intact. There is no abrasion laceration or bleeding. Pain is exacerbated by performing work duties. Pain is relieved by resting. ED Review of Systems ROS: Stated complaint: HBP/LT WRIST INJURY Other details as noted in HPI Constitutional: denies: chills, fever Eyes: denies: eye pain, eye discharge, vision change ENT: denies: ear pain, throat pain Respiratory: denies: cough, shortness of breath, wheezing Cardiovascular: denies: chest pain, palpitations Endocrine: no symptoms reported Gastrointestinal: denies: abdominal pain, nausea, diarrhea Genitourinary: denies: urgency, dysuria, discharge Musculoskeletal: other (Left thumb pain and swelling) Skin: denies: rash, lesions Neurological: numbness. denies: headache, weakness, paresthesias Psychiatric: denies: anxiety, depression Hematological/Lymphatic: denies: easy bleeding, easy bruising ED Past Medical Hx - Surgical History Hx Cholecystectomy: Yes - Social History Smoking Status: Never Smoker Substance Use Type: None - Medications Home Medications: Home Medications Medication Instructions Recorded Confirmed Last Taken Type Ibuprofen [Ibu] 600 mg PO Q6HR PRN #20 tablet 09/12/18 Unknown Rx Trudy Root [Trudy] 250 mg PO QID PRN #30 capsule 10/18/20 Unknown Rx Ibuprofen [Motrin] 600 mg PO Q8H PRN #30 tablet 10/18/20 Unknown Rx Metoclopramide [Reglan] 10 mg PO QID PRN #30 tablet 10/18/20 Unknown Rx Metoclopramide [Reglan] 10 mg PO QID PRN #30 tablet 10/18/20 Unknown Rx Morphine Sulfate [Morphine Sulfate 7.5 mg PO Q6HR PRN #10 tablet 10/18/20 Unknown Rx IR] levoFLOXacin [Levaquin] 750 mg PO QDAY #10 tablet 10/18/20 Unknown Rx Benzonatate [Tessalon Perles] 100 mg PO Q8HR PRN #12 capsule 03/28/21 Unknown Rx Butalb/Acetaminophen/Caffeine 1 cap PO Q8HR PRN #10 cap 03/28/21 Unknown Rx [Fioricet 50-300-40 mg CAP] Ondansetron [Zofran Odt] 4 mg PO Q8HR PRN #10 tab.rapdis 03/28/21 Unknown Rx guaiFENesin ER [Mucinex ER] 600 mg PO Q12H #12 tablet.er 03/28/21 Unknown Rx Cyclobenzaprine [Flexeril] 10 mg PO BID PRN #20 tab 10/31/21 Unknown Rx Naproxen 500 mg PO BID PRN #30 tab 10/31/21 Unknown Rx Upper Extremity Exam - Exam General: Vital signs noted. No distress. Alert and acting appropriately. Head and Torso: No HEENT Abnormality, No Neck Tenderness, No Chest/Lungs Abnormality, No Abdominal Tenderness, No Back Tenderness Shoulder Exam: Yes Normal Range of Motion in Shoulder, No Shoulder Tenderness, No Clavicle Tenderness, No Shoulder Deformity, No AC Joint Tenderness Arm Exam: No Arm/Humerus Tenderness, No Arm Deformity Elbow: Yes Normal Range of Motion in Elbow, Yes Elbow Deformity, No Elbow Tenderness Forearm: No Forearm Tenderness, No Forearm Deformity, No Pain with Pronation, No Pain with Supination Wrist: Yes Normal ROM in Wrist, Yes Wrist Deformity, Yes Pain with Axial Thumb Compression, No Wrist Tenderness, No Snuffbox Tenderness Hand: Yes Digit Tenderness (Left posterior thumb), Yes Normal ROM in Digit(s), No Hand Tenderness, No Hand Deformity, No Digit(s) Deformity, No Tendon Dysfunction CMS Exam: Yes Normal Distal Pulses, Yes Normal Capillary Refill, Yes Normal Distal Sensation, No Broken Skin ED Course Vital Signs 10/30/21 19:25 Temperature 98.1 F Pulse Rate 77 Respiratory 18 Rate Blood Pressure 159/79 O2 Sat by Pulse 100 Oximetry ED Medical Decision Making - Radiology Data Radiology results: report reviewed, image reviewed LEFT HAND 4 VIEW(S) INDICATION / CLINICAL INFORMATION: PAIN COMPARISON: None available. FINDINGS: BONES / JOINT(S): No acute fracture or subluxation. No significant arthritis. SOFT TISSUES: No significant abnormality. ADDITIONAL FINDINGS: None. IMPRESSION: 1. No acute findings. Signer Name: Boyd Coleman MD Signed: 10/30/2021 8:16 PM Workstation Name: [id number] Transcribed By: TL Dictated By: Boyd Coleman MD Electronically Authenticated By: Boyd Coleman MD Signed Date/Time: 10/30/212015 DD/ 15 TD/TT: - Medical Decision Making X-ray left wrist hand no fracture no subluxation no dislocation. This is likely overuse injury. Plan DC to home, with prescriptions for NSAIDs,, cock up wrist splint, follow-up with Ortho in 2 to 3 days. Patient verbalized agreement and understanding of discharge plan. Patient DC'd home in stable condition at this time. Critical care attestation.: If time is entered above; I have spent that time in minutes in the direct care of this critically ill patient, excluding procedure time. ED Disposition Clinical Impression: Other soft tissue disorders related to use, overuse and pressure, left hand Disposition: 01 HOME / SELF CARE / HOMELESS Is pt being admited?: No Does the pt Need Aspirin: No Condition: Stable Instructions: Repetitive Strain Injuries, Preventing Overuse Injuries, Adult Additional Instructions: Take medications as prescribed, use moist heat therapy as directed. Wear wrist brace as directed. Follow-up with orthopedic surgery in 2 to 3 days. Prescriptions: Cyclobenzaprine [Flexeril] 10 mg PO BID PRN #20 tab PRN Reason: Pain , Severe (7-10) Naproxen 500 mg PO BID PRN #30 tab PRN Reason: PAIN SWELLING Referrals: MADISON GREENFIELD MD [Staff Physician] - 3-5 Days Forms: Work/School Release Form(ED) Time of Disposition: 05:54
[2021-10-31 06:03] VITALS: BP 152/73
== END 2021-10-31 06:30 | disposition home or self-care (01) ==
LOC: ED 18:04
DX: M79.89 Other specified soft tissue disorders (principal); M70.842 Other soft tissue disorders related to use, overuse and pressure, left hand; Z90.49 Acquired absence of other specified parts of digestive tract; Y93.89 Activity, other specified
CPT/HCPCS: 99283